=== PATIENT | female | born 1950 | race Caucasian/White ===

== ENCOUNTER → 2023-07-11 09:54 | Outpatient (AMB) | payer BC, SELFPAY ==
--- NOTE | 2023-07-11 10:10 | A.OFFPC_ITS ---
Vital Signs 07/11/23 10:11 Height 5 ft 2.5 in Weight 180 lb 4 oz BMI 32.4 BP 136/70 Blood Pressure Location Lt brachial Position Sitting Pulse 72 Pulse Source Pulse Oximeter Pulse Oximetry (%) 99 Oxygen Delivery Method Room Air Intake Visit Reasons: bar assistant, NEEDS MEDICATIONS Intake Note: Patient is here as a new patient, needs refills on her medications. Allergies sulfamethoxazole [From Bactrim] Allergy (Severe, Verified 07/11/23 10:14) Anaphylaxis trimethoprim [From Bactrim] Allergy (Severe, Verified 07/11/23 10:14) Anaphylaxis Penicillins Allergy (Mild, Verified 07/11/23 10:14) Anaphylaxis Medication List - Last Reconciled 07/11/23 by Jose Miguel Antonio MD albuterol sulfate 90 mcg/actuation (ProAir HFA) 1 puff inhalation QID amlodipine 5 mg PO DAILY clobetasol 0.05% 1 appl topical DAILY escitalopram oxalate 5 mg PO DAILY furosemide 20 mg PO DAILY lisinopril 40 mg PO DAILY mupirocin 2% 1 appl topical TID Tobacco use date assessed: 07/11/23 Fall risk assessment: No Falls in past year Last assessed Fall Risk: 07/11/23 Dental Screening Dental Screen Date: 07/11/23 Did you have a dental visit in the last 12 months?: No Did you have a dental problem in the last 6 months where you did not have access to dental care?: No Was dental information given to patient?: Patient declined HPI bar assistant, NEEDS MEDICATIONS HPI Details New patient Prior PCP:? [facility] Last office visit/CPE: Acute issue(s): Dermatitis/LE Edema PMHx: HTN, Asthmatic Bronchitis, Anxiety/Depression, LE Edema SurgHx: Tubal Ligation, Cataracts B/L FHx: Son & Daughter w/ HTN. Mom: HTN, Aneurysm. Dad: CVA, ETOH. SocHx: Quit cigs 20 yrs ago. EtOH 1 glass occassionally. PFSH Medical History (Updated 07/11/23 @ 11:01 by Jose Miguel Antonio MD) Acid reflux High blood pressure Asthma Surgical History (Updated 07/11/23 @ 10:23 by Sis Wells CMA) Hx of cataract surgery H/O tubal ligation Family History (Updated 07/11/23 @ 10:25 by Sis Wells CMA) Father High blood pressure Substance abuse Mother High blood pressure Social History (Updated 07/11/23 @ 10:28 by Sis Wells CMA) Household Members: Family Both parents involved: No Caregiver staying overnight: No Housing: Other Are you a primary healthcare representative to a significant other at home: No Do you presently have visiting nurse or other home services: No 75 years or older and lives alone: No Alcohol intake: current Comment: on occasion, a glass of wine Patient Tobacco Use Status: Former Tobacco user Quit Date: 20 years ago. e-Cigarette/Vaping Use: Never Used service: No Current occupational status: retired Cognitive needs: No Hearing needs: No Vision needs: No Questionnaire PHQ-9 Over the last 2 weeks, how often have you been bothered by any of the following problems? 1. Little interest or pleasure in doing things: not at all 2. Feeling down, depressed, or hopeless: not at all 3. Trouble falling or staying asleep, or sleeping too much: not at all 4. Feeling tired or having little energy: not at all 5. Poor appetite or overeating: not at all 6. Feeling bad about yourself - or that you are a failure or have let yourself or your family down: not at all 7. Trouble concentrating on things, such as reading the newspaper or watching television: not at all 8. Moving or speaking so slowly that other people could have noticed. Or the opposite - being so fidgety or restless that you have been moving around a lot more than usual: not at all 9. Thoughts that you would be better off or of hurting yourself in some way: not at all Total score: 0 Depression Screening Interpretation: Negative Depression Screening Done: Yes 16194 - PHQ-9 Billing: Yes Source: Developed by Drs. Marco A Echevarria, Randee Bernabe, Aidan Dunn and colleagues, with an educational armand from [employer]. Thrive Questionnaire Date Thrive assessed: 07/11/23 I am a: Patient What is your living situation today?: I have a steady place to live Within the past 12 months, did the food you bought not last and you didn't have the money to get more?: Never true Within the past 12 months, did you worry whether your food would run out before you got money to buy more?: Never true Do you have trouble paying for medicines?: No Do you have trouble getting transportation to medical appointments?: No Do you have trouble paying your heating and electricity bill?: No Do you have trouble taking care of your child, family member or friend?: No Do you have trouble with day-to-day activities such as bathing, preparing meals, shopping, managing finances, etc.?: No Are you currently unemployed and looking for a job?: No Are you interested in more education?: No THRIVE Score: 0 AUDIT C Alcohol Use Questionnaire (AUDIT-C) 1. How often do you have a drink containing alcohol?: Monthly or less 2. How many drinks containing alcohol do you have on a typical day when you are drinking?: 1 or 2 3. How often do you have six or more drinks on one occasion?: Never Total Score: 1 ELENA-7 AMB Questionnaire ELENA-7 Date ELENA - 7 assessed: 07/11/23 Feeling nervous, anxious, or on edge: 0 = Not at all Not being able to stop or control worryin = Not at all Worrying too much about different things: 0 = Not at all Trouble relaxin = Not at all Being so restless that it is hard to sit still: 0 = Not at all Becoming easily annoyed or irritable: 0 = Not at all Feeling afraid as if something awful might happen: 0 = Not at all Total ELENA-7 score (0-4 normal; 5-9 mild; 10-14 moderate; 15-21 severe): 0 Source: Developed by Drs. Marco A Echevarria, Randee Bernabe, Aidan Dunn and colleagues, with an educational armand from [employer]. ELENA-7 Assessment Billing ELENA-7 Assessment Tool: ELENA-7 Assessment 98131 Review of Systems Const Denies chills, Denies fatigue, Denies fever(s), Denies headache(s) and Denies weakness ENT Denies dizziness and Denies headache(s) Card Denies chest pain, Denies lightheadedness, Denies dyspnea and Denies other (Palpitations) Resp Denies cough, Denies dyspnea, Denies wheezing and Denies other ( shortness of breath) Musc Denies numbness and Denies tingling Neuro Denies dizziness, Denies headache(s), Denies numbness, Denies tingling, Denies paresthesias and Denies weakness Psych Denies anxiety and Denies depression Endo Denies fatigue Aller/Immun Denies wheezing Physical exam (Primary Care) Vital Signs: Last Vital Signs Pulse 72 07/11/23 10:11 BP 136/70 07/11/23 10:11 Pulse Ox 99 07/11/23 10:11 Oxygen Delivery Method Room Air 07/11/23 10:11 BMI result Body Mass Index 32.4 Tobacco/Smoking Status: Tobacco use Status Tobacco use date assessed 07/11/23 07/11/23 10:20 Patient Tobacco Use Status Former Tobacco user 07/11/23 10:28 e-Cigarette/Vaping Use Never Used 07/11/23 10:28 PHQ-9: PHQ-9 Score PHQ-9: Total score 0 07/11/23 10:33 Depression Screening Interpretation: Negative Thrive Assessment: Date of Thrive Assessment Date Thrive assessed 07/11/23 07/11/23 10:33 Const General: no acute distress and well developed Nutritional Appearance: well nourished Orientation/consciousness: patient oriented x3 [facility]: Yes normocephalic and Yes atraumatic Eyes General: appearance normal, both eyes and all related structures Pupils: Equal, round and reactive pupils present EOM: EOMs intact bilaterally Resp Effort & Inspection: normal respiratory effort Auscultation: clear to auscultation bilaterally Cardio Rate: regular rate Rhythm: regular rhythm Heart sounds: S1 normal heart sound present, S2 normal heart sound present, no gallops, no murmurs and no rubs Neuro General: patient oriented x3 and gait normal Cranial nerves: Yes Equal, round and reactive pupils present Psych Affect: normal affect Assessment and Plan Assessment & Plan (1) High blood pressure: Code(s): I10 - Essential (primary) hypertension Plan: Blood?pressure?is?controlled.??Goal?is?less?than?140/90 Continue?current?medication?regimen (2) Depression with anxiety: Code(s): F41.8 - Other specified anxiety disorders Plan: Stable.??Continue?current?medication (3) Asthmatic bronchitis: Code(s): J45.909 - Unspecified asthma, uncomplicated Plan: Recent?exacerbation?and?s/p?Z-Pritesh?and?prednisone?x5?days?each. 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 Continue?furosemide Elevate?legs Will?give?her?compression?stockings (5) Dermatitis: Code(s): L30.9 - Dermatitis, unspecified Plan: Eczema?and?stasis?dermatitis?on?lower?extremities.??Patient?would?like?a?referra l?to?Dermatology.??Referred (6) Laboratory exam ordered as part of routine general medical examination: Code(s): Z00.00 - Encounter for general adult medical examination without abnormal findings Plan: Check?labs Orders: Orders Comprehensive [place]. Panel Fast Today Z00.00 - Encounter for general adult medical examination without abnormal findings Complete Blood Count Auto Diff Today Z00.00 - Encounter for general adult medical examination without abnormal findings TSH reflex Free T4 Today Z00.00 - Encounter for general adult medical examination without abnormal findings Lipid Panel Today Z00.00 - Encounter for general adult medical examination without abnormal findings Microalbumin, Random (w Creat) Today I10 - Essential (primary) hypertension UA and rflx microscopic Today Z00.00 - Encounter for general adult medical examination without abnormal findings Referrals Dermatology Referral L30.9 - Dermatitis, unspecified Medications: New amlodipine 5 mg PO DAILY 90 days 90 tabs 3RF escitalopram oxalate 5 mg PO DAILY 90 days 90 tabs 3RF furosemide 20 mg PO DAILY 90 days 90 tabs 3RF comp.stocking,knee,long,medium 30-40 mmHg. Daily As directed, 999 days 12 ea 0RF R60.0 - Localized edema albuterol sulfate 90 mcg/actuation (ProAir HFA) 1 puff inhalation QID 30 days 8.5 grams 3RF lisinopril 40 mg PO DAILY 90 days 90 tabs 3RF Coding Level of Care Code Est Pt Level 4 (48173) Diagnoses High blood pressure I10 Depression with anxiety F41.8 Asthmatic bronchitis J45.909 Lower extremity edema R60.0 Dermatitis L30.9 Laboratory exam ordered as part of routine general medical examination Z00.00 Additional Codes ELENA-7 Assessment Billing - ELENA-7 Assessment Tool: ELENA-7 Assessment [id number] ([id number])
[2023-07-11 10:11] VITALS: BP 136/70; PULSE 72; O2SAT 99; BMI 32.4
== END ==
PROVIDERS: PCP Family Medicine; Visit Provider Family Medicine
DX: I10 Essential (primary) hypertension (principal); F41.8 Other specified anxiety disorders; J45.909 Unspecified asthma, uncomplicated; R60.0 Localized edema; L30.9 Dermatitis, unspecified
CPT/HCPCS: 99214

== ENCOUNTER 2024-04-03 12:19 | Outpatient (AMB) | payer BC, SELFPAY ==
[2024-04-03 12:21] VITALS: BP 130/62; PULSE 61; TEMP 36.7; O2SAT 96
--- NOTE | 2024-04-03 12:21 | MHC.OFFWIV ---
Intake Vital Signs 04/03/24 12:21 BMI Reason not done Patient refused/unable BP 130/62 Blood Pressure Location Rt brachial Position Sitting Pulse 61 Pulse Source Pulse Oximeter Temp 98.1 F Temp Source Oral Pulse Oximetry (%) 96 Oxygen Delivery Method Room Air Intake Visit Reasons: Sore throat and cough Intake Note: Sore throat and cough Patient Tobacco Use Status: Former Tobacco user Allergies sulfamethoxazole [From Bactrim] Allergy (Severe, Verified 04/03/24 12:34) Anaphylaxis trimethoprim [From Bactrim] Allergy (Severe, Verified 04/03/24 12:34) Anaphylaxis Penicillins Allergy (Mild, Verified 04/03/24 12:34) Anaphylaxis Do you need a note to return to daycare/school/sports/work: No HPI HPI Comments History of Present Illness Details 73-year-old female here today with complaints of flu-like symptoms. Exposed to her and daughter with similar symptoms. Up-to-date on vaccinations. Symptoms include wheezing, mild cough that started this morning. Using inhaler with positive effect. Needs a refill. Exam Awake alert NAD Sclera and conjunctiva clear bilat Nares patent, turbinates within normal limits, no sinus tenderness with palpation bilat TM intact and clear bilat MMM, pharynx WNL RRR LS CTAB Plan Tamiflu tessalon refill on albuterol edu on reasons to RTO [facility] Medical History (Updated 04/03/24 @ 14:51 by Laurita Frost, [facility]) Acid reflux Asthma High blood pressure Surgical History (Updated 07/11/23 @ 10:23 by Sis Wells CMA) H/O tubal ligation Hx of cataract surgery Family History (Updated 07/11/23 @ 10:25 by Sis Wells CMA) Father High blood pressure Substance abuse Mother High blood pressure Social History (Updated 07/11/23 @ 10:28 by Sis Wells CMA) Household Members: Family Both parents involved: No Caregiver staying overnight: No Housing: Other Are you a primary medical care manager to a significant other at home: No Do you presently have visiting nurse or other home services: No 75 years or older and lives alone: No Alcohol intake: current Comment: on occasion, a glass of wine Patient Tobacco Use Status: Former Tobacco user e-Cigarette/Vaping Use: Never Used service: No Current occupational status: retired Cognitive needs: No Hearing needs: No Vision needs: No Physical Exam Vital Signs: Last Vital Signs Temp 98.1 F 04/03/24 12:21 Pulse 61 04/03/24 12:21 BP 130/62 04/03/24 12:21 Pulse Ox 96 04/03/24 12:21 Oxygen Delivery Method Room Air 04/03/24 12:21 Assessment & Plan Assessment & Plan (1) Asthmatic bronchitis: Code(s): J45.909 - Unspecified asthma, uncomplicated Qualifiers: Asthma severity: mild Asthma persistence: intermittent Asthma complication type: uncomplicated Qualified Code(s): J45.20 - Mild intermittent asthma, uncomplicated (2) Flu-like symptoms: Code(s): R68.89 - Other general symptoms and signs Plan . Medications: New oseltamivir (Tamiflu) 75 mg PO Q12H 10 caps 0RF 5 days benzonatate 100 mg PO TID PRN 30 caps 1RF cough 10 days Changed From albuterol sulfate 90 mcg/actuation (ProAir HFA) 1 puff inhalation QID 30 days 8.5 grams 3RF To albuterol sulfate 90 mcg/actuation 1 puff inhalation QID 8.5 grams 3RF 30 days Coding Level of Care Code Est Pt Level 3 (38185) Diagnoses Mild intermittent asthmatic bronchitis without complication J45.20 Asthma severity: mild Asthma persistence: intermittent Asthma complication type: uncomplicated Flu-like symptoms R68.89
== END 2024-04-03 12:41 | disposition home or self-care (01) ==
PROVIDERS: PCP Family Medicine; Visit Provider Nurse Practitioner Family
DX: J45.20 Mild intermittent asthma, uncomplicated (principal); R68.89 Other general symptoms and signs

== ENCOUNTER → 2024-04-03 12:19 | Outpatient (BNVA) | payer BC, SELFPAY | PROVIDERS: PCP Family Medicine ==

== ENCOUNTER 2024-12-11 15:22 | Outpatient (AMB) | payer BC, SELFPAY ==
--- OUTSIDE RECORDS SUMMARY | 2020-05-21 20:00 | XMS_ITS | Continuity of Care Document ---
Author Organization [facility] Address [address] [place] [id number] Phone Care Team Providers Care Senior Java Programmer Name Role Phone RCM, Rendering Unavailable Unavailable Allergies, Adverse Reactions, Alerts Substance Reaction Status Criticality Penicillins Active No Information sulfamethoxazole Active No Informat ion Sulfa (Sulfonamide Antibiotics) Active No Information Advance Directives Directive Yes / No Effective Date File Name No Information Encounters Encounter Description Practice Location Reason(s) For Visit Diagnoses Date Provider Providers Copied on Encounter [facility] , [address] [place] [address], [id number], tel:[phone] [facility] Presence of intraocular lensVitreous degeneration, bilateralPuckering of macula, bilateralOther secondary cataract, bilateral Apr-0 1-202 1 [facility] . [address] [place] [address], [id number], [place]. tel: [phone] [facility] , [address] [place] [address], [id number], tel:[phone] [facility] Location Other secondary cataract, bilateralVitreous degeneration, bilateralPresence of intraocular lensPuckering of macula, bilateral Mar-2 2-202 1 [facility] . [address] [place] [address], [id number], [place]. tel:[phone] [facility] , [address] [place] [address], [id number], [place] tel:[phone] [facility] Punctate keratitis, left eyePresence of intraocular lensVitreous degeneration, right eyeVitreous degeneration, bilateralOther secondary cataract, bilateralPuckering of macula, bilateral Apr-02 21- 1 [facility] . [address] [place] [address], [id number], [place]. tel:[phone] [facility] , [address] [place] [address], [id number], [place] tel:[phone] [facility] Vitreous degeneration, right eyePunctate keratitis, left eyePresence of intraocular lens Apr-1 9 [facility] . [address] [place] [address], [id number], [place]. tel: [phone] [facility] , [address] [place] [address], [id number], [place] tel:[phone] [facility] Vitreous degeneration, right eyeAge-related nuclear cataract, left eyePresence of intraocular lens Apr-0 9 [facility] . [address] [place] [address], [id number], [place]. tel:[phone] [facility] , [address] [place] [address], [id number], [place] tel:[phone] [facility] Regular astigmatism, bilateralPresence of intraocular lensAge-related nuclear cataract, left eyeVitreous degeneration, right eye 9 [facility] . [address] [place] [address], [id number], [place]. tel: [phone] [facility] , [address] [place] [address], [id number], [place] tel:[phone] [facility] Age-related nuclear cataract, bilateral 9 [facility] . [address] [place] [address], [id number], [place]. tel: [phone] [facility] , [address] [place] [address], [id number], [place] tel:[phone] [facility] Vitreous degeneration, right eyeAge-related nuclear cataract, bilateralRegular astigmatism, bilateral 9 [facility] . [address] [place], [address], [place]. tel:[phone] Family History Family Member Type Diagnosis Age At Onset Close relative Problem (finding) No Significant Family History Payers Payer name Insurance type Covered alliance party ID Authoriza tion(s) No Information Social History Type Description Quantity Date Captured Comments Alcohol Use Details Unknown Caffeine Use Details Unknown Tobacco Use Status Former smoker Smoking Status Former smoker Non-Smoking Tobacco Use Details : No Details Available : No Details Available Sex Female Chief Complaint And Reason For Visit No Information Reason For Referral Reason For Referral No Information History Of Present Illness Encounter Date Complaint History Of Prese nt Illness No Information Functional Status Date Functional Assessmen t No Information Instructions Date Instruction Additional Infor veronique Impression/Plan Related to Diagn osis Description: Posterior capsular opacification visually significant of both eyes \nDiagnosis Code: 366.53 Impression/Plan Related to Diagn osis Description: Epiretinal membrane (ERM) of both eyes \nDiagnosis Code: 362.56 Impression/Plan Related to Diagn osis Description: PVD (posterior vitreous detachment), both eyes \nDiagnosis Code: 379.21 Impression/Plan Related to Diagn osis Description: Bilateral pseudophakia \nDiagnosis Code: V43.1 Impression/Plan Related to Diagn osis Description: Epiretinal membrane (ERM) of both eyes \nDiagnosis Code: 362.56 Impression/Plan Related to Diagn osis Description: Bilateral pseudophakia \nDiagnosis Code: V43.1 Impression/Plan Related to Diagn osis Description: Posterior capsular opacification visually significant of both eyes \nDiagnosis Code: 366.53 Impression/Plan Related to Diagn osis Description: PVD (posterior vitreous detachment), both eyes \nDiagnosis Code: 379.21 Impression/Plan Related to Diagn osis Description: Posterior capsular opacification visually significant of both eyes \nDiagnosis Code: 366.53 Impression/Plan Related to Diagn osis Description: Posterior vitreous detachment of right eye \nDiagnosis Code: 379.21 Impression/Plan Related to Diagn osis Description: Epiretinal membrane (ERM) of both eyes \nDiagnosis Code: 362.56 Impression/Plan Related to Diagn osis Description: Superficial punctate keratitis of left eye \nDiagnosis Code: 370.21 Impression/Plan Related to Diagn osis Description: PVD (posterior vitreous detachment), both eyes \nDiagnosis Code: 379.21 Impression/Plan Related to Diagn osis Description: Bilateral pseudophakia \nDiagnosis Code: V43.1 Impression/Plan Related to Diagn osis Description: Posterior vitreous detachment of right eye \nDiagnosis Code: 379.21 Impression/Plan Related to Diagn osis Description: Superficial punctate keratitis of left eye \nDiagnosis Code: 370.21 Impression/Plan Related to Diagn osis Description: Bilateral pseudophakia \nDiagnosis Code: V43.1 Impression/Plan Related to Diagn osis Description: Posterior vitreous detachment of right eye \nDiagnosis Code: 379.21 Impression/Plan Related to Diagn osis Description: Age-related nuclear cataract of left eye \nDiagnosis Code: 366.16 Impression/Plan Related to Diagn osis Description: Bilateral pseudophakia \nDiagnosis Code: V43.1 Impression/Plan Related to Diagn osis Description: Posterior vitreous detachment of right eye \nDiagnosis Code: 379.21 Impression/Plan Related to Diagn osis Description: Regular astigmatism of both eyes \nDiagnosis Code: 367.21 Impression/Plan Related to Diagn osis Description: Age-related nuclear cataract of left eye \nDiagnosis Code: 366.16 Impression/Plan Related to Diagn osis Description: Pseudophakia of right eye \nDiagnosis Code: V43.1 Impression/Plan Related to Diagn osis Description: Age-related nuclear cataract of both eyes \nDiagnosis Code: 366.16 Impression/Plan Related to Diagn osis Description: Posterior vitreous detachment of right eye \nDiagnosis Code: 379.21 Impression/Plan Related to Diagn osis Description: Regular astigmatism of both eyes \nDiagnosis Code: 367.21 Impression/Plan Related to Diagn osis Description: Age-related nuclear cataract of both eyes \nDiagnosis Code: 366.16 Assessments Type Assessment Date No Information Patient Care Teams Name Effective Dates (start - stop) Status Members No Information
--- NOTE | 2024-12-11 15:28 | A.OFFPC_ITS ---
Vital Signs 12/11/24 15:47 Weight 202 lb 6 oz BP 132/62 Blood Pressure Location Rt brachial Position Sitting Respiration 18 Pulse 68 Pulse Source Pulse Oximeter Temp 98.2 F Temp Source Oral Pulse Oximetry (%) 98 Oxygen Delivery Method Room Air Intake Visit Reasons: Medication review Intake Note: medication review Allergies sulfamethoxazole (From Bactrim) Allergy (Severe, Verified 12/11/24 15:44) Anaphylaxis trimethoprim (From Bactrim) Allergy (Severe, Verified 12/11/24 15:44) Anaphylaxis Penicillins Allergy (Mild, Verified 12/11/24 15:44) Anaphylaxis Tobacco use date assessed: 12/11/24 Fall risk assessment: No Falls in past year Last assessed Fall Risk: 12/11/24 Dental Screening Dental Screen Date: 12/11/24 Did you have a dental visit in the last 12 months?: No Did you have a dental problem in the last 6 months where you did not have access to dental care?: No Was dental information given to patient?: Patient has dentist HPI HPI Comments History of Present Illness Details 74 year old female with a past medical h istory of asthma, hypertension, anxiety/depression, presenting for follow up. She was seen by Dr Antonio last year after moving from [place] CV: on furosemide, lisinopril, amlodipine. 132/62. no chest pain, dyspnea Anxiety/depression: on lexapro 5mg daily. stable Dermatitis of bilateral LE ankles feet Due for colon cancer screening, mammography ROS CONSTITUTIONAL: Denies weight loss, fever and chills. HEENT: Denies changes in vision and hearing. RESPIRATORY: Denies SOB and cough. CV: Denies palpitations and CP GI: Denies abdominal pain, nausea, vomiting and diarrhea. : Denies dysuria and urinary frequency. MSK: Denies new myalgia and joint pain. SKIN: see above NEUROLOGICAL: Denies headache PSYCHIATRIC: Denies recent changes in mood. PHYSICAL EXAM: GENERAL: Alert and oriented x 3. NAD EYES: EOMI. Anicteric. HENT: Moist mucous membranes. No scleral icterus. No cervical lymphadenopathy. LUNGS: Clear to auscultation bilaterally. CARDIOVASCULAR: Regular rate and rhythm. No murmur. No JVD. ABDOMEN: Soft, non-tender +bs EXTREMITIES: No edema. Non-tender. SKIN: venous stasis changes NEUROLOGIC: No focal neurological deficits. CN II-XII grossly intact PSYCHIATRIC: Cooperative. Appropriate mood and affect [facility] Medical History Acid reflux High blood pressure Asthma Surgical History Hx of cataract surgery H/O tubal ligation Family History Father High blood pressure Substance abuse Mother High blood pressure Social History Household Members: Family Both parents involved: No Caregiver staying overnight: No Housing: Other Are you a primary nurse wound care to a significant other at home: No Do you presently have visiting nurse or other home services: No 75 years or older and lives alone: No Alcohol intake: current Comment: on occasion, a glass of wine Patient Tobacco Use Status: Former Tobacco user e-Cigarette/Vaping Use: Never Used Use of substances other than those prescribed or required for medical reasons: No service: No Current occupational status: retired Cognitive needs: No Hearing needs: No Vision needs: No Questionnaire PHQ-9 Over the last 2 weeks, how often have you been bothered by any of the following problems? 1. Little interest or pleasure in doing things: not at all 2. Feeling down, depressed, or hopeless: not at all 3. Trouble falling or staying asleep, or sleeping too much: not at all 4. Feeling tired or having little energy: not at all 5. Poor appetite or overeating: not at all 6. Feeling bad about yourself - or that you are a failure or have let yourself or your family down: not at all 7. Trouble concentrating on things, such as reading the newspaper or watching television: not at all 8. Moving or speaking so slowly that other people could have noticed. Or the opposite - being so fidgety or restless that you have been moving around a lot more than usual: not at all 9. Thoughts that you would be better off or of hurting yourself in some way: not at all Total score: 0 Depression Screening Interpretation: Negative Depression Screening Done: Yes 14560 - PHQ-9 Billing: Yes Source: Developed by Drs. Marco A Echevarria, Randee Bernabe, Aidan Dunn and colleagues, with an educational amrand from [employer]. Thrive Questionnaire Date Thrive assessed: 07/11/23 I am a: Patient What is your living situation today?: I have a steady place to live Within the past 12 months, did the food you bought not last and you didn't have the money to get more?: Never true Within the past 12 months, did you worry whether your food would run out before you got money to buy more?: Never true Do you have trouble paying for medicines?: No Do you have trouble getting transportation to medical appointments?: No Do you have trouble paying your heating and electricity bill?: No Do you have trouble taking care of your child, family member or friend?: No Do you have trouble with day-to-day activities such as bathing, preparing meals, shopping, managing finances, etc.?: No Are you currently unemployed and looking for a job?: No Are you interested in more education?: No Please select the resources that you would like help with: None Currently or been in a relationship where the following occur: No concerns reported THRIVE Score: 0 AUDIT C Alcohol Use Questionnaire (AUDIT-C) 1. How often do you have a drink containing alcohol?: Never Total Score: 0 ELENA-7 AMB Questionnaire ELENA-7 Date ELENA - 7 assessed: 12/11/24 Feeling nervous, anxious, or on edge: 0 = Not at all Not being able to stop or control worryin = Not at all Worrying too much about different things: 0 = Not at all Trouble relaxin = Not at all Being so restless that it is hard to sit still: 0 = Not at all Becoming easily annoyed or irritable: 0 = Not at all Feeling afraid as if something awful might happen: 0 = Not at all Total ELENA-7 score (0-4 normal; 5-9 mild; 10-14 moderate; 15-21 severe): 0 Source: Developed by Drs. Marco A Echevarria, Aidan Izquierdo and colleagues, with an educational armand from [employer]. ELENA-7 Assessment Billing ELENA-7 Assessment Tool: ELENA-7 Assessment 39836 Physical exam (Primary Care) Vital Signs: Last Vital Signs Temp 98.2 F 12/11/24 15:47 Pulse 68 12/11/24 15:47 Resp 18 12/11/24 15:47 BP 132/62 12/11/24 15:47 Pulse Ox 98 12/11/24 15:47 Oxygen Delivery Method Room Air 12/11/24 15:47 Tobacco/Smoking Status: Tobacco use Status Tobacco use date assessed 12/11/24 12/11/24 15:48 Patient Tobacco Use Status Former Tobacco user 12/11/24 15:47 e-Cigarette/Vaping Use Never Used 12/11/24 15:47 PHQ-9: PHQ-9 Score PHQ-9: Total score 0 12/11/24 15:48 Depression Screening Interpretation: Negative Thrive Assessment: Date of Thrive Assessment Date Thrive assessed 07/11/23 12/11/24 15:28 Currently or been in a relationship where the following occur: No concerns reported Coding Level of Care Code Est Pt Level 4 (03930) Complex EM visit Add On G2211 Diagnoses Depression with anxiety F41.8 Primary hypertension I10 Hypertension type: primary hypertension Mild intermittent asthma without complication J45.20 Asthma severity: mild Asthma persistence: intermittent Asthma complication type: uncomplicated Additional Codes ELENA-7 Assessment Billing - ELENA-7 Assessment Tool: ELENA-7 Assessment 96168 ([id number]) PHQ-9 - 37598 - PHQ-9 Billing: Yes ([id number]) Assessment & Plan Assessment & Plan (1) Depression with anxiety: Code(s): F41.8 - Other specified anxiety disorders Category: Medical (2) High blood pressure: Code(s): I10 - Essential (primary) hypertension Category: Medical Qualifiers: Hypertension type: primary hypertension Qualified Code(s): I10 - Essential (primary) hypertension (3) Asthma: Code(s): J45.909 - Unspecified asthma, uncomplicated Category: Medical Qualifiers: Asthma severity: mild Asthma persistence: intermittent Asthma complication type: uncomplicated Qualified Code(s): J45.20 - Mild intermittent asthma, uncomplicated Plan 74 year old female for follow up Asthma is well controlled HTN is controlled on current medications. Efforts toward weight loss Mammo, gi referral Orders: Orders Comprehensive Met. Panel Today F41.8 - Other specified anxiety disorders, I10 - Essential (primary) hypertension, Z13.0 - Encounter for screening for diseases of the blood and blood-forming organs and certain disorders involving the immune mechanism Lipid Panel Today F41.8 - Other specified anxiety disorders, I10 - Essential (primary) hypertension, Z13.0 - Encounter for screening for diseases of the blood and blood-forming organs and certain disorders involving the immune mechanism Hemoglobin A1c Today R35.89 - Other polyuria Complete Blood Count Auto Diff Today F41.8 - Other specified anxiety disorders, I10 - Essential (primary) hypertension, Z13.0 - Encounter for screening for diseases of the blood and blood-forming organs and certain disorders involving the immune mechanism MM tomosynthesis screening BI Today Z12.31 - Encounter for screening mammogram for malignant neoplasm of breast Referrals Gastroenterology Referral Z12.11 - Encounter for screening for malignant neoplasm of colon Dermatology Referral L30.9 - Dermatitis, unspecified, Z12.83 - Encounter for screening for malignant neoplasm of skin Medications: New clotrimazole-betamethasone 1-0.05 % 1 appl topical BID 45 grams 3RF 4 weeks Refilled escitalopram oxalate 5 mg PO DAILY 90 tabs 3RF 90 days furosemide 20 mg PO DAILY 90 tabs 3RF 90 days amlodipine 5 mg PO DAILY 90 tabs 3RF 90 days lisinopril 40 mg PO DAILY 90 tabs 3RF 90 days albuterol sulfate 90 mcg/actuation 1 puff inhalation QID 8.5 grams 3RF 30 days
[2024-12-11 15:47] VITALS: BP 132/62; PULSE 68; RESP 18; TEMP 36.8; O2SAT 98
--- OUTSIDE RECORDS SUMMARY | 2024-12-11 20:28 | XMS_ITS | Clinical Summary ---
Author Organization [facility] Address [address] [address] Phone Care Team Providers Care Skidder Name Role Phone Jose Miguel Antonio MD Primary Care Provider Allergies Active Allergy Reactions Criticality Noted Date Comments Acetaminophen Hives,Swelling High 01/30/2014 Penicillins Anaphylaxis,Hives High 01/30/2014 Sulfamethoxazole-Trimethoprim Anaphylaxis High 01/30 Medications albuterol (PROVENTIL HFA) 90 mcg/actuation inhaler Inhale 2 puffs into the lungs as needed. Active amLODIPine (NORVASC) 5 MG tablet Take 5 mg by mouth daily. Active escitalopram oxalate (LEXAPRO) 5 MG tablet Take 1 tablet by mouth every morning. 07/09/2024 Active furosemide (LASIX) 20 MG tablet Take 1 tablet by mouth every morning. 06/21/2024 Active lisinopril (PRINIVIL,ZESTRI L) 40 MG tablet Take 40 mg by mouth daily. Active Family History Medical History Relation Comments Hypertension Mother 2 Relation Status Comments Mother 1 Mother 2 Social History Tobacco Use Types Packs/Day Years Used Date Smoking Tobacco: Never Assessed Education Answer Date Recorded Are you interested in more education? Not on shelby e 07/27/2024 Are you concerned about learning? Not on file 07/27/2024 No 07/27/2024 No 07/27/2024 Digital Access Answer Date Recorded No 07/27/2024 No 07/27/2024 Reliable internet access at home? Not on file 07/27/2024 Device with a working camera? Not on file Comments Unknown Sex and Gender Information Value Date Recorded Sex Assigned at Not on file Legal Sex Female 10:04 PM EDT Gender Identity Not on file Sexual Orientation Not on file Last Filed Vital Signs Vital Sign Reading Time Taken Comments Blood Pressure 139/72 07/27/2024 10:55 AM EDT Pulse 63 07/27/2024 10:55 AM EDT Temperature 37.2 C (98.9 F) 07/27/2024 10:55 AM EDT Respiratory Rate 19 07/27/2024 10:55 AM EDT Oxygen Saturation 97% 07/27/2024 10:55 AM EDT Inhaled Oxygen Concentration - - Weight 90.3 kg (199 lb) 10/29/2013 2:07 AM EDT Height 158.8 cm (5' 2.5 ) 10/29/2013 2:07 AM EDT Body Mass Index 35.82 10/29/2013 2:07 AM EDT Plan of Treatment Health Maintenance Due Date Last Done Comments CREATININE LEVEL 1948 LIPID PANEL 1948 POTASSIUM LEVEL 1948 DEPRESSION SCREENING 1960 SMOKING Hx and SMOKELESS TOBACCO SCREENING 1961 HEPATITIS C SCREENING 1966 ZOSTER VACCINES (2 of 3) 09/03/2011 07/09/2011 PNEUMOCOCCAL VACCINES (50+ years) (2 of 2 - PCV) 03/22/2012 03/22/2011 OSTEOPOROSIS SCREENING INITIAL (ONE-TIME) 2013 Adult Td,Tdap Booster 10/17/2021 10/18/2011 RSV VACCINE (1 - 1-dose 75+ series) 09/09/2023 INFLUENZA VACCINE (#1) 2024 4, 10/29/2013, 02/09/2013, Additional history exists COVID-19 VACCINE ( season) 2024 HEPATITIS A VACCINES Aged Out No long er eligible based on patient's age to complete this topic HIB VACCINES Aged Out No longer eligi ble based on patient's age to complete this topic MENINGOCOCCAL VACCINES (ACWY) Aged Out No longer eligible based on patient's age to complete this topic MENINGOCOCCAL VACCINES (B) Aged Out N o longer eligible based on patient's age to complete this topic Medical Devices Not on file Insurance [facility] [place] MEDICARE PPO BLUE REPLACEMENT Care Teams Skidder Relationship Specialty Start Date End Date Jose Miguel Antonio MD [address] [place] [address] PCP - General Family Medicine 07/27/24 Additional Source Comments The information contained in this document represents components of the legal health record. It is not the complete legal health record.[facility]
== END 2024-12-11 17:05 ==
LOC: HO.HMCFM 15:23
PROVIDERS: PCP Family Medicine; Visit Provider Internal Medicine
DX: F41.8 Other specified anxiety disorders (principal); I10 Essential (primary) hypertension; J45.20 Mild intermittent asthma, uncomplicated

== ENCOUNTER → 2024-12-11 15:22 | Outpatient (BNVA) | payer BC, SELFPAY | PROVIDERS: PCP Family Medicine; Visit Provider Internal Medicine | DX: F41.8 Other specified anxiety disorders (principal); I10 Essential (primary) hypertension; J45.20 Mild intermittent asthma, uncomplicated; L30.9 Dermatitis, unspecified; Z13.31 Encounter for screening for depression; Z13.39 Encounter for screening examination for other mental health and behavioral disorders | CPT/HCPCS: 96127 ==